=== PATIENT | female | born 1965 | race American Indian/Alaskan Native ===

== ENCOUNTER 2020-02-16 15:34 | Emergency (ER) | payer SELFPAY ==
--- NOTE | 2020-02-16 16:50 | Emergency Department Report ---
HPI - General Chief Complaint: Chest Pain Time Seen by Provider: 02/16/20 16:28 - HPI HPI: Room 3 The patient is a 54-year-old female present with a chief complaint of chest tightness and hematochezia. Patient states she has had intermittent hematochez ia since the beginning of this year. Patient states she was originally given a referral to a nib finisher but the appointment was canceled. Patient states the hematochezia had resolved. The patient states over the past month she has noticed blood in her stool again and states she is only able to have a bowel movement if she takes a laxative. The patient states since yesterday she has had tightness in her chest and left upper extremity that is been intermittent and is associated with shortness of breath. Patient denies nausea/vomiting or diaphoresis. Patient denies pleurisy, cough or fever. Patient currently gives her chest tightness a score of 7/10. Patient states she is never had a stress test but had a normal cardiac catheterization less than 2 years ago at [facility] ED Past Medical Hx - Past Medical History Hx Hypertension: Yes Additional medical history: Anemia - Surgical History Hx Breast Surgery: Yes (Breast biopsy (precancerous)) - Family History Family history: no significant - Social History Smoking Status: Former Smoker (None x1 year (black and milds)) Substance Use Type: None (Denies illicit drug use), Alcohol (Occasional) - Medications Home Medications: Home Medications Medication Instructions Recorded Confirmed Last Taken Type Cyclobenzaprine [Flexeril] 10 mg PO TID PRN #14 tablet 02/16/20 Unknown Rx Docusate Sodium [Colace] 100 mg PO BID #60 capsule 02/16/20 Unknown Rx Famotidine [Pepcid] 20 mg PO BID #20 tablet 02/16/20 Unknown Rx ED Review of Systems ROS: Stated complaint: CHEST PAIN Other details as noted in HPI Constitutional: denies: diaphoresis, fever Eyes: denies: eye pain ENT: denies: throat pain Respiratory: shortness of breath Cardiovascular: chest pain Endocrine: no symptoms reported Gastrointestinal: hematochezia. denies: nausea, vomiting Genitourinary: denies: dysuria Musculoskeletal: denies: back pain Neurological: denies: headache Physical Exam - Physical Exam Vital Signs: Vital Signs 02/16/20 15:53 Pulse Rate 118 H Respiratory 18 Rate Blood Pressure 168/98 Blood Pressure 162/88 [Left] O2 Sat by Pulse 96 Oximetry Physical Exam: GENERAL: The patient is well-developed well-nourished female lying on stretcher not appearing to be in acute distress. [] HEENT: Normocephalic. Atraumatic. Extraocular motions are intact. Patient has moist mucous membranes. NECK: Supple. Trachea midline CHEST/LUNGS: Clear to auscultation. There is no respiratory distress noted. HEART/CARDIOVASCULAR: Regular. There is no tachycardia. There is no gallop rub or murmur. ABDOMEN: Abdomen is soft, with diffuse trace discomfort to palpation. There is no rebound or guarding. Patient has normal bowel sounds. There is no abdominal distention. SKIN: There is no rash. There is no edema. There is no diaphoresis. NEURO: The patient is awake, alert, and oriented. The patient is cooperative. The patient has normal speech MUSCULOSKELETAL: There is no evidence of acute injury. ED Course Vital Signs 02/16/20 15:53 Pulse Rate 118 H Respiratory 18 Rate Blood Pressure 168/98 Blood Pressure 162/88 [Left] O2 Sat by Pulse 96 Oximetry ED Medical Decision Making - Lab Data Result diagrams: 02/16/20 16:55 02/16/20 16:55 Laboratory Tests 02/16/20 02/16/20 02/16/20 16:55 16:55 16:55 WBC 11.5 H RBC 3.47 L Hgb 9.7 L Hct 30.8 MCV 89 MCH 28 MCHC 32 RDW 16.1 H Plt Count 313 Lymph % (Auto) 19.4 [place] % (Auto) 5.1 Eos % (Auto) 1.1 Baso % (Auto) 0.6 Lymph # (Auto) 2.2 [place] # (Auto) 0.6 Eos # (Auto) 0.1 Baso # (Auto) 0.1 Seg Neutrophils % 73.8 H Seg Neutrophils # 8.5 H PT 12.1 L INR 0.91 APTT 31.8 D-Dimer 153.82 Sodium Potassium Chloride Carbon Dioxide Anion Gap BUN Creatinine Estimated GFR BUN/Creatinine Ratio Glucose Calcium Total Bilirubin AST ALT Alkaline Phosphatase Total Creatine Kinase 75 CK-MB (CK-2) < 1.0 CK-MB (CK-2) Rel Index 1.3 Troponin T NT-Pro-B Natriuret Pep Total Protein Albumin Albumin/Globulin Ratio 02/16/20 02/16/20 16:55 16:55 WBC RBC Hgb Hct MCV MCH MCHC RDW Plt Count Lymph % (Auto) [place] % (Auto) Eos % (Auto) Baso % (Auto) Lymph # (Auto) [place] # (Auto) Eos # (Auto) Baso # (Auto) Seg Neutrophils % Seg Neutrophils # PT INR APTT D-Dimer Sodium 143 Potassium 3.5 L Chloride 107.1 H Carbon Dioxide 27 Anion Gap 12 BUN 8 Creatinine 0.6 Estimated GFR > 60 BUN/Creatinine Ratio 13 Glucose 99 Calcium 8.7 Total Bilirubin 0.40 AST 13 ALT 12 Alkaline Phosphatase 61 Total Creatine Kinase CK-MB (CK-2) CK-MB (CK-2) Rel Index Troponin T < 0.010 NT-Pro-B Natriuret Pep 85.41 Total Protein 7.2 Albumin 3.8 L Albumin/Globulin Ratio 1.1 - EKG Data -: EKG Interpreted by Me EKG shows normal: sinus rhythm Rate: normal - EKG Data When compared to previous EKG there are: previous EKG unavailable Interpretation: nonspecific ST-T wave tammy (T wave inversion in lead III) - Radiology Data Radiology results: report reviewed (Chest x-ray), image reviewed (Chest x-ray) interpreted by me: Chest x-ray-no focal infiltrates, no pneumothorax, no foreign body seen Findings [address] [address] XRay Report Signed Patient: RANDOLPH GOLD MR#: [id number] : 1965 Acct:[id number] Age/Sex: 54 / F ADM Date: 02/16/20 Loc: ED Attending Dr: Ordering Physician: AMY LOPEZ MD Date of Service: 02/16/20 Procedure(s): XR chest 1V ap Accession Number(s): [id number] cc: AMY LOPEZ MD Fluoro Time In Nm nutes: CHEST 1 VIEW INDICATION: chest pain. COMPARISON: None. FINDINGS: Support devices: None. Heart: Normal. Lungs/Pleura: No acute pulmonary or pleural findings. IMPRESSION: 1. No acute findings. Signer Name: Javier Mcmanus MD Signed: 02/16/2020 7:08 PM Workstation Name: [id number] Transcribed By: DOTTIE Dictated By: Javier Mcmanus MD Electronically Authenticated By: Javier Mcmanus MD Signed Date/Time: 02/16/201907 DD/ 06 TD/TT: - Medical Decision Making Patient states she is positive her cardiac catheterization was within the past 2 years and was clean. Attempted to retrieve records from [facility] however the medical records department is closed and the records are accessible until tomorrow. - Differential Diagnosis Costochondritis, pericarditis, GERD, ACS, PE Critical care attestation.: If time is entered above; I have spent that time in minutes in the direct care of this critically ill patient, excluding procedure time. ED Disposition Clinical Impression: Atypical chest pain, Constipation Disposition: TO HOME OR SELFCARE Is pt being admited?: No Does the pt Need Aspirin: No Condition: Stable Instructions: Chest Pain (ED), Chest Wall Pain Additional Instructions: Return to the emergency department should you develop worsening symptoms, inability to tolerate food or liquids, high fever or any other concerns Prescriptions: Docusate Sodium [Colace] 100 mg PO BID #60 capsule Cyclobenzaprine [Flexeril] 10 mg PO TID PRN #14 tablet PRN Reason: Muscle Spasm Famotidine [Pepcid] 20 mg PO BID #20 tablet Referrals: [facility] [Provider Group] - 3-5 Days MARIA LUZ KIM MD [Primary Care Provider] - 3-5 Days MALENA RANGEL MD [Staff Physician] - 3-5 Days (Dr. Rangel is a nib finisher. Please follow-up with him for further evaluation) Time of Disposition: 19:27
[2020-02-16 17:23] VITALS: BP 124/68
[2020-02-16 17:33] LABS: Basophils # (Auto) 0.1 K/mm3 (0.0-0.1); Basophils % (Auto) 0.6 % (0.0-1.8); Eosinophils # (Auto) 0.1 K/mm3 (0.0-0.4); Eosinophils % (Auto) 1.1 % (0.0-4.3); Hematocrit 30.8 % (30.3-42.9); Hemoglobin 9.7 gm/dl (10.1-14.3); Lymphocytes # (Auto) 2.2 K/mm3 (1.2-5.4); Lymphocytes % (Auto) 19.4 % (13.4-35.0); Mean Corpuscular HGB Conc 32 % (30-34); Mean Corpuscular Volume 89 fl (79-97); Monocytes # (Auto) 0.6 K/mm3 (0.0-0.8); Monocytes % (Auto) 5.1 % (0.0-7.3); Platelet Count 313 K/mm3 (140-440); Red Blood Count 3.47 M/mm3 (3.65-5.03); Red Cell Distribution Width 16.1 % (13.2-15.2)
[2020-02-16 17:47] LABS: Alanine Aminotransferase 12 units/L (7-56); Albumin 3.8 g/dL (3.9-5); Blood Urea Nitrogen 8 mg/dL (7-17); Calcium 8.7 mg/dL (8.4-10.2); Hemolysis Index 8
[2020-02-16 17:55] LABS: BUN/Creatinine Ratio 13; Creatine Kinase MB < 1.0 ng/mL (0.0-4.0)
[2020-02-16 17:57] LABS: INR 0.91 (0.87-1.13)
[2020-02-16 17:58] LABS: Partial Thromboplastin Time 31.8 Sec. (24.2-36.6)
--- NOTE | 2020-02-16 19:12 | XRay Report ---
CHEST 1 VIEW INDICATION: chest pain. COMPARISON: None. FINDINGS: Support devices: None. Heart: Normal. Lungs/Pleura: No acute pulmonary or pleural findings. IMPRESSION: 1. No acute findings. Signer Name: Javier Mcmanus MD Signed: 02/16/2020 7:08 PM Workstation Name: [id number]
[2020-02-16] MEDS ORDERED: CYCLOBENZAPRINE 10 MG TAB PO ONE (19:50)
== END 2020-02-16 20:00 | disposition home or self-care (01) ==
LOC: ED 15:34
DX: K59.00 Constipation, unspecified (principal); I10 Essential (primary) hypertension; Z87.891 Personal history of nicotine dependence; Z79.899 Other long term (current) drug therapy
CPT/HCPCS: 36415; 71045; 80053; 82550; 82553; 83880; 84484; 85025; 85379; 85610; 85730; 93005